=== PATIENT | female | born 1970 | race Caucasian/White ===

== ENCOUNTER 2017-03-05 07:59 | Emergency (ER) | payer BC ==
--- NOTE | 2017-03-05 09:22 | RAD ---
HISTORY: Chest pain COMPARISONS: August 28, 2012 VIEWS: 2: Frontal dual-energy and lateral views of the chest. FINDINGS: CARDIOMEDIASTINAL SILHOUETTE: The cardiomediastinal silhouette is normal. SUSY: The susy are normal. PLEURA: The costophrenic angles are sharp. No pleural abnormalities are noted. LUNG PARENCHYMA: The lungs are clear. ABDOMEN: The upper abdomen is clear. There is no subphrenic gas. BONES AND SOFT TISSUES: No bone or soft tissue abnormalities are noted. OTHER: None. IMPRESSION: NO ACTIVE CARDIOPULMONARY DISEASE.
[2017-03-05 09:37] LABS: Hematocrit 38 % (35-47); Hemoglobin 13.3 g/dl (12.0-16.0); Mean Corpuscular HGB Conc 35 g/dl (31-36); Mean Corpuscular Hemoglobin 29 pg (27-31); Mean Corpuscular Volume 83 fL (80-97); Mean Platelet Volume 7 um3 (7.4-10.4); Red Blood Count 4.58 10^6/ul (4.0-5.4); Red Cell Distribution Width 14 % (10.5-15); White Blood Count 5.3 10^3/ul (3.5-10.8)
[2017-03-05 09:50] LABS: Ammonia 35 mol/L (16-53)
[2017-03-05 09:52] LABS: Albumin 3.9 g/dL (3.2-5.2); BUN/Creatinine Ratio 15.7 (8-20); C Reactive Protein 3.87 mg/L (< 5.00); Calcium 8.9 mg/dL (8.6-10.3); EGFR Non-African American 74.7 (>60); Globulin 2.7 g/dL (2-4); Total Bilirubin 0.9 mg/dL (0.2-1.0); Total Protein 6.6 g/dL (6.4-8.9)
[2017-03-05 09:56] LABS: B Type Natriuretic Peptide 117 pg/mL
[2017-03-05] MEDS ORDERED: Ketorolac INJ* 30 MG/ML 1 ML VIAL IV PUSH ONE (11:21)
[2017-03-05 13:22] VITALS: BP 117/57
--- NOTE | 2017-03-05 18:17 | ED ---
Reji Elizondo Billy, scribed for Brando Oh MD on 03/05/17 at 0934 . Complex/Multi-Sys Presentation - HPI Summary HPI Summary: Patient is a 46 year-old female coming to [facility] for evaluation of several complaints. She woke up with pain in the epigastrium 3 days ago with accompanying nausea. She describes a pressure and ache in the epigastric region , severity 7-8/10. Yesterday, she began to have pain in the left shoulder radiating down the left arm. She describes her shoulder pain as a sharp, stabbing pain that is worse with deep breaths. Denies SOB. Denies any similar previous episodes. PSHx is significant for cholecystectomy. - History Of Current Complaint Chief Complaint: EDGeneral Time Seen by Provider: 03/05/17 08:37 Hx Obtained From: Patient Onset/Duration: Gradual Onset, Lasting Days, Still Present Timing: Constant Severity Currently: Moderate Severity Initially: Moderate Location: Pain At: - epigastric, shoulder Aggravating Factor(s): left shoulder pain worse with deep breaths Associated Signs And Symptoms: Negative: SOB - Allergies/Home Medications Allergies/Adverse Reactions: Allergies Allergy/AdvReac Type Severity Reaction Status Date / Time No Known Allergies Allergy Verified 03/05/17 09:18 PMH/Surg Hx/FS Hx/Imm Hx Endocrine/Hematology History: Denies: Hx Diabetes Cardiovascular History: Denies: Hx Hypertension, Hx Pacemaker/ICD Respiratory History: Reports: Hx Asthma - childhood asthma History: Reports: Hx Kidney Stones - LEFT Denies: Hx Renal Disease Sensory History: Reports: Hx Contacts or Glasses - CONTACTS WILL WEAR GLASSES Denies: Hx Hearing Aid Opthamlomology History: Reports: Hx Contacts or Glasses - CONTACTS WILL WEAR GLASSES Psychiatric History: Reports: Hx Anxiety - CONTROL WITH MEDS Denies: Hx Panic Disorder - Cancer History Hx Chemotherapy: No Hx Radiation Therapy: No - Surgical History Surgery Procedure, Year, and Place: 1999 & 2002 CSECTION, [id number] LAPAROSCOPIC CHOLECYSTECTOMY, [id number] [facility] KIDNEY STONE REMOVAL Hx Anesthesia Reactions: Yes - SEVERE NAUSEA AND VOMITING Infectious Disease History: No Infectious Disease History: Denies: Traveled Outside the US in Last 30 Days - Family History Family History: Patient states that both of her parents are alive and healthy without any significant health problems. - Social History Alcohol Use: Occasionally Substance Use Type: Reports: None Smoking Status (MU): Never Smoked Tobacco Review of Systems Negative: Shortness Of Breath Positive: Abdominal Pain, Nausea Musculoskeletal: Other - left shoulder pain All Other Systems Reviewed And Are Negative: Yes Physical Exam - Summary Physical Exam Summary: VITAL SIGNS: Reviewed. GENERAL: Patient is a well-developed and nourished female who is lying comfortable in the stretcher. Patient is not in any acute respiratory distress. HEAD AND FACE: No signs of trauma. No ecchymosis, hematomas or skull depressions. No sinus tenderness. EYES: PERRLA, EOMI x 2, No injected conjunctiva, no nystagmus. EARS: Hearing grossly intact. Ear canals and tympanic membranes are within normal limits. MOUTH: Oropharynx within normal limits. NECK: Supple, trachea is midline, no adenopathy, no JVD, no carotid bruit, no c- spine tenderness, neck with full ROM. CHEST: Symmetric, no tenderness at palpation LUNGS: Clear to auscultation bilaterally. No wheezing or crackles. CVS: Regular rate and rhythm, S1 and S2 present, no murmurs or gallops appreciated. ABDOMEN: Soft, tender to the epigastrium. No signs of distention. No rebound no guarding, and no masses palpated. Bowel sounds are normal. EXTREMITIES: FROM in all major joints, no edema, no cyanosis or clubbing. NEURO: Alert and oriented x 3. No acute neurological deficits. Speech is normal and follows commands. SKIN: Dry and warm Triage Information Reviewed: Yes Vital Signs On Initial Exam: Initial Vitals Temp Pulse Resp BP Pulse Ox 98.3 F 62 18 130/76 100 03/05/17 08:01 03/05/17 08:01 03/05/17 08:01 03/05/17 08:01 03/05/17 08:01 Vital Signs Reviewed: Yes - [place] Coma Scale Coma Scale Total: 15 Diagnostics - Vital Signs Vital Signs Temp Pulse Resp BP Pulse Ox 03/05/17 08:08 98.3 F 57 18 126/71 100 03/05/17 08:01 98.3 F 62 18 130/76 100 - Laboratory Lab Results: Lab Results 03/05/17 03/05/17 03/05/17 Range/Units 09:15 09:15 09:15 WBC 5.3 (3.5-10.8) 10^3/ul RBC 4.58 (4.0-5.4) 10^6/ul Hgb 13.3 (12.0-16.0) g/dl Hct 38 (35-47) % MCV 83 (80-97) fL MCH 29 (27-31) pg MCHC 35 (31-36) g/dl RDW 14 (10.5-15) % Plt Count 212 (150-450) 10^3/ul MPV 7 L (7.4-10.4) um3 Neut % (Auto) 72.6 (38-83) % Lymph % (Auto) 20.0 L (25-47) % [place] % (Auto) 5.7 (1-9) % Eos % (Auto) 1.3 (0-6) % Baso % (Auto) 0.4 (0-2) % Absolute Neuts (auto) 3.8 (1.5-7.7) 10^3/ul Absolute Lymphs (auto) 1.1 (1.0-4.8) 10^3/ul Absolute Monos (auto) 0.3 (0-0.8) 10^3/ul Absolute Eos (auto) 0.1 (0-0.6) 10^3/ul Absolute Basos (auto) 0 (0-0.2) 10^3/ul Absolute Nucleated RBC 0.01 10^3/ul Nucleated RBC % 0.1 Sodium 135 (133-145) mmol/L Potassium 4.0 (3.5-5.0) mmol/L Chloride 104 (101-111) mmol/L Carbon Dioxide 25 (22-32) mmol/L Anion Gap 6 (2-11) mmol/L BUN 13 (6-24) mg/dL Creatinine 0.83 (0.51-0.95) mg/dL Est GFR ( Amer) 96.0 (>60) Est GFR (Non-Af Amer) 74.7 (>60) BUN/Creatinine Ratio 15.7 (8-20) Glucose 101 H (70-100) mg/dL Lactic Acid (0.5-2.0) mmol/L Calcium 8.9 (8.6-10.3) mg/dL Total Bilirubin 0.90 (0.2-1.0) mg/dL AST 17 (13-39) U/L ALT 15 (7-52) U/L Alkaline Phosphatase 50 (34-104) U/L Ammonia 35 (16-53) mol/L Total Creatine Kinase 76 (10-223) U/L Troponin I 0.00 (<0.04) ng/mL C-Reactive Protein 3.87 (< 5.00) mg/L B-Natriuretic Peptide 117 H ( - 100) pg/mL Total Protein 6.6 (6.4-8.9) g/dL Albumin 3.9 (3.2-5.2) g/dL Globulin 2.7 (2-4) g/dL Albumin/Globulin Ratio 1.4 (1-3) Amylase 52 (29-103) U/L Lipase 33 (11.0-82.0) U/L 03/05/17 03/05/17 Range/Units 09:15 11:40 WBC (3.5-10.8) 10^3/ul RBC (4.0-5.4) 10^6/ul Hgb (12.0-16.0) g/dl Hct (35-47) % MCV (80-97) fL MCH (27-31) pg MCHC (31-36) g/dl RDW (10.5-15) % Plt Count (150-450) 10^3/ul MPV (7.4-10.4) um3 Neut % (Auto) (38-83) % Lymph % (Auto) (25-47) % [place] % (Auto) (1-9) % Eos % (Auto) (0-6) % Baso % (Auto) (0-2) % Absolute Neuts (auto) (1.5-7.7) 10^3/ul Absolute Lymphs (auto) (1.0-4.8) 10^3/ul Absolute Monos (auto) (0-0.8) 10^3/ul Absolute Eos (auto) (0-0.6) 10^3/ul Absolute Basos (auto) (0-0.2) 10^3/ul Absolute Nucleated RBC 10^3/ul Nucleated RBC % Sodium (133-145) mmol/L Potassium (3.5-5.0) mmol/L Chloride (101-111) mmol/L Carbon Dioxide (22-32) mmol/L Anion Gap (2-11) mmol/L BUN (6-24) mg/dL Creatinine (0.51-0.95) mg/dL Est GFR ( Amer) (>60) Est GFR (Non-Af Amer) (>60) BUN/Creatinine Ratio (8-20) Glucose (70-100) mg/dL Lactic Acid 0.6 (0.5-2.0) mmol/L Calcium (8.6-10.3) mg/dL Total Bilirubin (0.2-1.0) mg/dL AST (13-39) U/L ALT (7-52) U/L Alkaline Phosphatase (34-104) U/L Ammonia (16-53) mol/L Total Creatine Kinase (10-223) U/L Troponin I 0.00 (<0.04) ng/mL C-Reactive Protein (< 5.00) mg/L B-Natriuretic Peptide ( - 100) pg/mL Total Protein (6.4-8.9) g/dL Albumin (3.2-5.2) g/dL Globulin (2-4) g/dL Albumin/Globulin Ratio (1-3) Amylase (29-103) U/L Lipase (11.0-82.0) U/L Result Diagrams: 03/05/17 09:15 03/05/17 09:15 Lab Statement: Any lab studies that have been ordered have been reviewed, and results considered in the medical decision making process. - Radiology CXR Xray Interpretation: No Acute Changes Radiology Interpretation Completed By: Radiologist - EKG 0816 EKG Interpretation: sinus bradycardia 51 bpm, no STEMI Re-Evaluation - Re-Evaluation First Eval Re-Evaluation Time: 12:39 Complex Multi-Symp Course/Dx Assessment/Plan: Patient is a 46 year-old female coming to [facility] for evaluation of several complaints. She woke up with pain in the epigastrium 3 days ago with accompanying nausea. She describes a pressure and ache in the epigastric region , severity 7-8/10. Yesterday, she began to have pain in the left shoulder radiating down the left arm. She describes her shoulder pain as a sharp, stabbing pain that is worse with deep breaths. Denies SOB. Denies any similar previous episodes. PSHx is significant for cholecystectomy. Bloodwork WNL. Troponin #1 is 0.00. Four hours later, troponin #2 is also 0.00. CXR shows no acute disease. EKG shows NSR with no STEMI. Therefore I have very low suspicion for ACS. The patients vital signs are stable. She is not tachycardia or hypoxic , therefore I have very low suspicion for pulmonary embolism. The patient was given Toradol and her symptoms improved. Therefore the patient will be discharged home to follow up with PCP. She was instructed to return to the ED if symptoms returned. She understands and agrees. At this point I discussed all the findings and test results with the patient. Patient was instructed to return to the emergency room immediately if any of the symptoms return or worsens. Patient understands and agrees. Patient is able to ambulate freely w/o aid or limp in the ER. Plan of care was discussed with the patient and patient understands and agrees. All questions were answered at patient satisfaction. There were no further complaints or concerns. Neurological exam before discharge: Patient is alert and oriented x 3. No acute neurological deficits. Patient is hemodynamically stable. Patient is to follow up with primary care physician in the next 2 3 days. He understands and agrees. - Diagnoses Provider Diagnoses: Chest pain Discharge - Discharge Plan Condition: Stable Disposition: HOME Patient Education Materials: Chest Pain (ED) Referrals: Manjula Villa MD [Primary Care Provider] - The documentation as recorded by the Reji velasquez Billy accurately reflects the service I personally performed and the decisions made by , Brando Oh MD.
== END 2017-03-05 13:22 | disposition home or self-care (01) ==
LOC: ED 07:59
DX: R07.9 Chest pain, unspecified (principal); R11.0 Nausea; M79.602 Pain in left arm
CPT/HCPCS: 36415; 71020; 80053; 82140; 82150; 82550; 83605; 83690; 83880; 84484; 85025; 86140; 93005; 96374; 99282; J1885

== ENCOUNTER 2019-02-24 08:20 | Observation (INO) | payer BC ==
[2019-02-24] MEDS ORDERED: Adenosine* 3 MG/ML VIAL IV PUSH ONE (08:31)
[2019-02-24] MEDS ORDERED: Adenosine* 3 MG/ML VIAL ONE (08:32)
[2019-02-24 08:44] LABS: ABS Eosinophils 0.1 10^3/ul (0-0.6); ABS Lymphocytes 1.7 10^3/ul (1.0-4.8); ABS Monocytes 0.3 10^3/ul (0-0.8); ABS Neutrophils 2.6 10^3/ul (1.5-7.7); Hematocrit 43 % (35-47); Lymphocyte % 35.1 %; Mean Corpuscular HGB Conc 35 g/dL (31-36); Mean Corpuscular Hemoglobin 29 pg (27-31); Mean Corpuscular Volume 82 fL (80-97); Mean Platelet Volume 6.8 fL (7.4-10.4); Nucleated Red Blood Cells % 0.1; Platelet Count 251 10^3/uL (150-450); Red Blood Count 5.21 10^6 /uL (3.70-4.87); Red Cell Distribution Width 15 % (10.5-15); White Blood Count 4.8 10^3/uL (3.5-10.8)
--- NOTE | 2019-02-24 08:49 | ED ---
HPI Chest Pain - HPI Summary HPI Summary: This patient is a 48 year old F presenting to [facility] with a chief complaint of L anterior chest pain since this morning at 0745 after dropping her daughter off at school. The patient stated that her heart was racing. The patient rates the pain 2/10 in severity. Patient denies dizziness, SOB, N/V, syncope, pain on palpation to her chest. She started going the gym last week and had similar chest pain while exercising. The patient reports a previous episode of chest pain while at work, but the pain resolved after breathing exercises. The patient denies a Hx and FHx of LBBB. - History of Current Complaint Time Seen by Provider: 02/24/19 08:26 Hx Obtained From: Patient Onset/Duration: Started Hours Ago - 0745 Timing: Constant Initial Severity: Mild Current Severity: Mild Pain Intensity: 2 Pain Scale Used: 0-10 Numeric Chest Pain Location: Left Anterior Chest Pain Radiates: No Character: Pressure/Squeezing Aggravating Factor(s): Nothing Alleviating Factor(s): Nothing Associated Signs and Symptoms: Positive: Palpitations. Negative: Chest Pain, Dizziness, Shortness of Breath, Syncope, Nausea, Vomiting - Allergy/Home Medications Allergies/Adverse Reactions: Allergies Allergy/AdvReac Type Severity Reaction Status Date / Time No Known Allergies Allergy Verified 01/23/18 13:12 PMH/Surg Hx/FS Hx/Imm Hx Previously Healthy: No Endocrine/Hematology History: Denies: Hx Diabetes Cardiovascular History: Denies: Hx Hypertension, Hx Pacemaker/ICD Respiratory History: Reports: Hx Asthma - childhood asthma History: Reports: Hx Kidney Stones - LEFT Denies: Hx Renal Disease Sensory History: Reports: Hx Contacts or Glasses - CONTACTS WILL WEAR GLASSES Denies: Hx Hearing Aid Opthamlomology History: Reports: Hx Contacts or Glasses - CONTACTS WILL WEAR GLASSES Psychiatric History: Reports: Hx Anxiety - CONTROL WITH MEDS Denies: Hx Panic Disorder - Cancer History Hx Chemotherapy: No Hx Radiation Therapy: No - Surgical History Surgery Procedure, Year, and Place: 1999 & 2002 CSECTION, [id number] LAPAROSCOPIC CHOLECYSTECTOMY, [id number] HYSTERECTOMY, [facility], KIDNEY STONE REMOVAL Hx Anesthesia Reactions: Yes - SEVERE NAUSEA AND VOMITING Infectious Disease History: No Infectious Disease History: Denies: Traveled Outside the [place] in Last 30 Days - Family History Known Family History: Positive: Hypertension Negative: Diabetes Family History: Patient states that both of her parents are alive and healthy without any significant health problems. - Social History Alcohol Use: Occasionally Alcohol Amount: 1 Hx Substance Use: No Substance Use Type: Reports: None Hx Tobacco Use: No Smoking Status (MU): Never Smoked Tobacco Have You Smoked in the Last Year: No Review of Systems Positive: Other - Negative: dizziness Positive: Palpitations, Chest Pain Negative: Shortness Of Breath Negative: Vomiting, Nausea Negative: Syncope All Other Systems Reviewed And Are Negative: Yes Physical Exam - Summary Physical Exam Summary: VITAL SIGNS: Reviewed. GENERAL: Patient is a well-developed and overweight FEMALE who is lying comfortable in the stretcher. Patient is in acute pain distress secondary to tachycardia. HEAD AND FACE: No signs of trauma. No ecchymosis, hematomas or skull depressions. No sinus tenderness. EYES: PERRLA, EOMI x 2, No injected conjunctiva, no nystagmus. EARS: Hearing grossly intact. Ear canals and tympanic membranes are within normal limits. MOUTH: Oropharynx within normal limits. NECK: Supple, trachea is midline, no adenopathy, no JVD, no carotid bruit, no c- spine tenderness, neck with full ROM. CHEST: Tachycardia, tenderness on palpation. LUNGS: Clear to auscultation bilaterally. No wheezing or crackles. CVS: Regular rate and rhythm, S1 and S2 present, no murmurs or gallops appreciated. ABDOMEN: Soft, non-tender. No signs of distention. No rebound no guarding, and no masses palpated. Bowel sounds are normal. EXTREMITIES: FROM in all major joints, no edema, no cyanosis or clubbing. NEURO: Alert and oriented x 3. No acute neurological deficits. Speech is normal and follows commands. SKIN: Dry and warm Triage Information Reviewed: Yes Vital Signs On Initial Exam: Initial Vitals Temp Pulse Resp BP Pulse Ox 95.1 F 171 18 130/88 97 02/24/19 08:20 02/24/19 08:20 02/24/19 08:20 02/24/19 08:20 02/24/19 08:20 Vital Signs Reviewed: Yes Diagnostics - Vital Signs Vital Signs Temp Pulse Resp BP Pulse Ox 02/24/19 08:20 95.1 F 171 18 130/88 97 - Laboratory Result Diagrams: 02/24/19 08:34 05/22/19 05:41 Lab Statement: Any lab studies that have been ordered have been reviewed, and results considered in the medical decision making process. - Radiology CXR Radiology Interpretation Completed By: Radiologist Summary of Radiographic Findings: NO ACTIVE CARDIOPULMONARY DISEASE IS NOTED. ED physician has reviewed this report. - EKG 0822 Cardiac Rate: Tachycardia - 168 BPM EKG Rhythm: SVT Summary of EKG Findings: Tachycardic rhythm with rate of 168 BPM with SVT and a LBBB. 0834 Cardiac Rate: NL - 86 BPM EKG Rhythm: Sinus Rhythm Summary of EKG Findings: Normal sinus rhythm at 86 BPM, LBBB Re-Evaluation - Re-Evaluation First Eval Re-Evaluation Time: 08:32 Change: Unchanged Comment: Patient was given adenosine 6 mg. Still with LBBB. Second Eval Re-Evaluation Time: 09:04 Change: Improved Comment: Patient was seen by Dr. Morris. condition is improving. Chest Pain Course/Dx - Course Assessment/Plan: This patient is a 48 year old F presenting to [facility] with a chief complaint of L anterior chest pain since this morning at 0745 after dropping her daughter off at school. The patient stated that her heart was racing. The patient rates the pain 2/10 in severity. Patient denies dizziness, SOB, nausea, syncope, pain on palpation to her chest. She started going the gym last week and had similar chest pain while exercising. The patient reports a previous Hx of chest pain while at work, but the pain resolved after breathing exercises. The patient denies a Hx and FHx of LBBB. EKG shows supraventricular tachycardia with a left bundle-branch block. IV access was obtained, the patient was placed on patient monitor and she was given adenosine 6 mg. After these medications the heart rate is at 97 bpm. The patient is still with a left bundle-branch block. This is new compared to her old EKGs. I discussed case with Dr. Morris who came and saw the patient and he recommended to give Lopressor 5 mg. He also recommends for the patient to be admitted to the hospital services for further workup and management. I discuss my physical exam , findings and test results with Dr. Tse from the hospitalist services and she agrees to admit patient to his services. Patient is hemodynamically stable alert and oriented x 3. - Chest Pain Differential Diagnosis/HQI/PQRI: Acute MT, ACS, Angina, CHF, Chest Wall, GI Disease, Lower Respiratory Infection - Diagnoses Provider Diagnoses: SVT (supraventricular tachycardia), LBBB (left bundle branch block) - Provider Notifications Discussed Care Of Patient With: Hernan Morris Time Discussed With Above Provider: 08:42 Instructed by Provider To: Admit As Inpatient - 841 - Dr. Morris, wet pour supervisor, recommended admitting the patient. Dr. Tse, Hospitalist, accepts the patient for admission, 926. - Critical Care Time Critical Care Time: 30-74 min Discharge - Sign-Out/Discharge Documenting (check all that apply): Patient Departure - admit - Discharge Plan Condition: Stable Disposition: ADMITTED TO [facility] - Billing Disposition and Condition Condition: GOOD Disposition: Admitted to [facility] - Attestation Statements Document Initiated by Irma: Yes Documenting Scribe: Az Garcia Provider For Whom Irma is Documenting (Include Credential): Brando Oh MD Scribe Attestation: IAz and Aime Garcia, scribed for Brando Oh MD on 02/26/19 at 1135. Scribe Documentation Reviewed: Yes Provider Attestation: The documentation as recorded by the ariaibcriss, Az Garcia accurately reflects the service I personally performed and the decisions made by Brando pereira MD Status of Scribe Document: Viewed
[2019-02-24] MEDS ORDERED: NS 0.9% 1000 ML** 1,000 ML IV ONE (08:56)
[2019-02-24 09:03] LABS: Activated Partial Thrombo Time 29.8 seconds (26.0-36.3)
[2019-02-24 09:04] LABS: ALT 25 U/L (7-52); AST 29 U/L (13-39); Albumin 4.8 g/dL (3.2-5.2); Albumin/Globulin Ratio 1.5 (1-3); Alkaline Phosphatase 56 U/L (34-104); Anion Gap 11 mmol/L (2-11); BUN/Creatinine Ratio 12.1 (8-20); Blood Urea Nitrogen 11 mg/dL (6-24); CO2 Carbon Dioxide 22 mmol/L (22-32); Calcium 9.9 mg/dL (8.6-10.3); Chloride 105 mmol/L (101-111); Creatine Kinase 445 U/L (10-223); EGFR African American 80.5 (>60); EGFR Non-African American 66.6 (>60); Globulin 3.1 g/dL (2-4); Glucose 95 mg/dL (70-100); Magnesium 1.9 mg/dL (1.9-2.7); Potassium 3.7 mmol/L (3.5-5.0); Sodium 138 mmol/L (135-145); Total Protein 7.9 g/dL (6.4-8.9)
[2019-02-24 09:05] LABS: Troponin I 0.01 ng/mL (<0.04)
[2019-02-24 09:06] LABS: CKMB ng/mL 3.3 ng/mL (0.6-6.3)
[2019-02-24 09:07] LABS: HCG Pregnancy < 0.60 mIU/mL
[2019-02-24] MEDS ORDERED: Metoprolol Tartrate IV* 1 MG/ML 5 ML VIAL IV ONE (09:07)
[2019-02-24 09:31] LABS: TSH (Thyroid Stimulating Horm) 2.67 mcIU/mL (0.34-5.60)
[2019-02-24 09:53] LABS: Urine Appearance Clear; Urine Bilirubin Negative (Negative); Urine Blood Negative (Negative); Urine Color Straw; Urine Glucose Negative (Negative); Urine Ketones 1+ (Negative); Urine Nitrite Negative (Negative); Urine Protein Negative (Negative); Urine Specific Gravity 1.005 (1.010-1.030); Urine Urobilinogen Negative (Negative)
[2019-02-24] MEDS ORDERED: Potassium Chlor TAB* 20 MEQ TAB.ER PO ONE (11:54)
[2019-02-24] MEDS ORDERED: Magnesium Sulfate 1 GM IV* 1 GM/100 ML BAG IV ONE (11:54)
--- NOTE | 2019-02-24 13:56 | HP ---
CC: Dr. Manjula Villa* HISTORY AND PHYSICAL: DATE OF ADMISSION: 02/24/19 PRIMARY CARE PROVIDER: Dr. Manjula Villa. HEALTHCARE PROXY: Isaiah Jones, the patient's . CODE STATUS: Full. CHIEF COMPLAINT: Fast heart rate and palpitations. HISTORY OF PRESENT ILLNESS: Ms. Jones is a 48-year-old woman with a history of anxiety and nephrolithiasis status post lithotripsy, who is presenting to the ER with acute onset of palpitations associated with a heavy feeling across her chest. She reports that for the past 6 months, she has had approximately 5 episodes of very fast heart rate. She states that she notices this when she feels palpitations in her chest and she checks her pulse and notices that her heart rate is going very quickly. She states that she thought that this was from anxiety attacks and she would take several deep breaths and eventually the palpitations and fast heart rate would resolve spontaneously. She reports that this morning, she was in the car with her daughter, who just got her learner's permit and was driving herself to school, when the patient again felt recurrence of palpitations with a heavy feeling in her chest. She denies that this ride was particularly stressful or anxiety provoking. After the drive, she had gone home and laid down in bed and practiced deep breathing again, but the palpitations did not resolve, so she decided to present to the emergency room. She denies chest pain, shortness of breath, diaphoresis, nausea, vomiting, abdominal pain or dysuria. Complete 10-point review of systems was performed and pertinent positives and negatives are listed in this HPI. In the emergency room, the patient had an EKG that was significant for rate of 168 with rhythm concerning for SVT, although the complex was wide. The patient was given adenosine 6 mg IV push once and also metoprolol 5 mg IV with resolution of her arrhythmia and symptoms. However, on repeat EKG, the patient was noted to have a new left bundle-branch block, so Dr. Morris from Cardiology was consulted, who recommended admission for further workup of structural or coronary artery disease. PAST MEDICAL HISTORY: 1. Anxiety. 2. Nephrolithiasis, status post lithotripsy in 2014. 3. Fibroid, status post hysterectomy. 4. Cholecystectomy. HOME MEDICATIONS: Escitalopram 10 mg nightly. ALLERGIES: No known drug allergies. FAMILY HISTORY: Both parents with hypertension. Paternal grandmother with a heart tumor. SOCIAL HISTORY: The patient lives with her and youngest daughter, her oldest daughter is training to be a nurse at [employer]. The patient denies history of smoking, alcohol, or other drugs. 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 PHYSICAL EXAMINATION GENERAL: She is a well-appearing pleasant woman in good spirits, no acute distress. VITAL SIGNS: Temperature 95, heart rate 50s, blood pressure 118/63, respiratory rate 16, oxygen saturation 100% on room air. HEENT: OP clear. Moist mucous membranes. NECK: No JVD. LUNGS: Clear to auscultation bilaterally. HEART: Regular rate and rhythm. No murmurs, gallops, or rubs. ABDOMEN: Soft, nontender, nondistended. Normoactive bowel sounds. BACK: No CVA tenderness. EXTREMITIES: Warm and well perfused. No edema. DP pulses 2+ bilaterally. DIAGNOSTIC STUDIES/LAB DATA: Labs reviewed and significant for normal CBC, BMP, and coags. Creatinine kinase 445. CK-MB normal. Troponin negative x2. BNP 180. TSH 2.6. UA clear. Chest x-ray with no active cardiopulmonary disease. EKGs as above. ASSESSMENT AND PLAN: Ms. oJnes is a 48-year-old woman with a history of anxiety and kidney stones, who is presenting with months of intermittent palpitations, who is found to have possible supraventricular tachycardia in the emergency room, which broke with adenosine and metoprolol. She is now being admitted for workup for new left bundle branch block discovered after the patient returned to normal sinus rhythm. 1. Left bundle-branch block. Appreciate Cardiology consult, Dr. Morris. Followup recommendations. Ordered for chemical stress test and TTE. We will continue to monitor electrolytes and replete as needed. Keep on telemetry overnight. Consider beta-magdy. 2. Anxiety. Continue home escitalopram 10 mg daily. 3. DVT prophylaxis: Initiate Lovenox 40 mg nightly. 4. Full code. TIME SPENT: Approximately 60 minutes was spent on admission of this patient, more than half of which was spent at bedside for interview and exam. [id number]/[facility] #: [id number] RICKY
--- NOTE | 2019-02-24 15:46 | ECHO ---
*[facility]* [place] [address] Fax #: [phone] Transthoracic Echocardiogram Patient: Robert, Height: 64 in / Mendy Lawrence 162.6 cm : 1970 Weight: 209.6 lb / Study Date: 02/24/2019 95.3 kg Age: 48 BP: 116 / 59 Gender: F BMI/BSA: 36 kg/m^2 HR: 55 bpm / 2 m^2 *Carton Stapler: * Gwendolyn Chen [facility] *Referring Physician: * Razia Tse *Reading Physician: * Hernan Morris MD Indications: Abnormal EKG. SVT History: Asthma. Conclusions Summary: 1. Left ventricle: The cavity size is at the upper limits of normal. Wall thickness is normal. Systolic function is normal. The estimated ejection fraction is 55-60%. Wall motion is normal; there are no regional wall motion abnormalities. 2. Right ventricle: Systolic function is normal. 3. Mitral valve: There is trivial regurgitation. 4. Aortic valve: There is no significant regurgitation. 5. Tricuspid valve: There is trivial regurgitation. 6. Pericardium, extracardiac: There is no significant pericardial effusion. Study data: Transthoracic echocardiogram. Procedure: Transthoracic echocardiography was performed. Image quality was good. Complete 2D, spectral Doppler, and color flow Doppler. Location: Bedside. Patient status: Inpatient. Patient room number: 438. Rhythm: Bradycardia. Findings Left ventricle: The cavity size is at the upper limits of normal. Wall thickness is normal. Apical trabeculations are present. Systolic function is normal. The estimated ejection fraction is 55-60%. Wall motion is normal; there are no regional wall motion abnormalities. There is no consistent Doppler evidence of clinically significant diastolic dysfunction. Right ventricle: The cavity size is normal. Systolic function is normal. Systolic pressure is within the normal range. Left atrium: The atrium is normal in size. Right atrium: The atrium is mildly to moderately dilated. Mitral valve: The leaflets are mildly thickened. There is no evidence of stenosis. There is trivial regurgitation. Aortic valve: The valve is trileaflet. The leaflets are mildly thickened. There is no evidence of stenosis. There is no significant regurgitation. Tricuspid valve: The leaflets are normal thickness. There is no evidence of stenosis. There is trivial regurgitation. Pulmonic valve: The leaflets are normal thickness. There is no evidence of stenosis. There is no significant regurgitation. Aorta: The aortic root is not dilated. Pericardium: There is no significant pericardial effusion. Pulmonary arteries: Not well visualized. Systemic veins: Inferior vena cava: The vessel is normal in size. The respirophasic diameter changes are in the normal range (>= 50%). Measurements Left ventricle Value Ref Aortic valve continued Value Ref SHEKHAR, LAX 5.2 cm 3.8 - 5.2 Mean grad, S 4.0 mm Hg ----- ESD, LAX (H) 4.0 cm 2.2 - 3.5 Peak grad, S 9.0 mm Hg ----- FS, LAX (L) 23 % 27 - 45 PW, ED, LAX 0.9 cm 0.6 - 0.9 Mitral valve Value Ref PW/ID, ED 0.17 Peak E 0.79 m/sec ----- EF (L) 47 % 54 - 74 Peak A 0.52 m/sec ----- E', lat uday, TDI (L) 9.8 cm/sec >=10.0 Decel time 145 ms - ---- E/e', lat uday, 8 Peak grad, D 2.5 mm Hg ---- - TDI Peak E/A ratio 1.5 ----- E', med uday, TDI (L) 6.8 cm/sec >=7.0 E/e', med uday, 12 Pulmonic valve Value Ref TDI Peak v, S 0.87 m/sec ----- E', avg, TDI 8.3 cm/sec Peak grad, S 3.0 mm Hg ---- - E/e', avg, TDI 9 <=14 Tricuspid valve Value Ref LVOT Value Ref TR peak v 2.23 m/sec <=2.8 Peak pam, S 1.26 m/sec Peak RV-RA grad, S 20 mm Hg ----- Peak grad, S 6 mm Hg Mean grad, S 3 mm Hg Aortic root Value Ref Root diam 2.6 cm <4.1 Ventricular septum Value Ref IVS, ED (H) 1.0 cm 0.6 - 0.9 Ascending aorta Value Ref AAo AP diam, S 2.7 cm ----- Right ventricle Value Ref SHEKHAR, LAX 3.5 cm Aortic arch Value Ref SHEKHAR minor ax, A4C 3.4 cm 1.9 - 3.5 Arch diam 3.2 cm ----- mid Pressure, S 23 mm Hg Decending aorta Value Ref Shellie peak pam 1.22 m/sec ----- Left atrium Value Ref AP dim, ES (H) 4.00 cm 2.70 - Pulmonary artery Value Ref 3.80 Pressure, S 20.0 mm Hg ----- ML dim, A4C 4.6 cm SI dim, A4C 5.3 cm Inferior vena cava Value Ref Vol/bsa, ES, A/L 30 ml/m^2 16 - 34 Diam 1.8 cm ----- Right atrium Value Ref Pulmonary veins Value Ref SI dim, ES (H) 6.4 cm 3.4 - 5.3 Peak v, S 0.75 m/sec ----- ML dim, ES, A4C (H) 4.5 cm 2.6 - 4.4 Peak v, D 0.61 m/sec ----- Estimated RAP 3 mm Hg Peak S/D ratio 1.2 ----- A rev duration 98 ms ----- Aortic valve Value Ref Uday diam, ED 2.2 cm Peak v, S 1.51 m/sec VTI, S 33.2 cm Legend: (L) and (H) shlomo values outside specified reference range. Prepared and electronically signed by Hernan Morris MD 02/24/2019 15:46
--- NOTE | 2019-02-24 17:42 | CONS ---
CARDIOLOGY CONSULTATION: DATE OF CONSULT: 02/24/19 INDICATION FOR CONSULTATION: Tachycardia, palpitations. HISTORY OF PRESENT ILLNESS: The patient is a 48-year-old female with very little past medical history who came to the emergency room with palpitations. She was found to have wide complex tachycardia at 160 beats per minute that look like a left bundle-branch block morphology. The patient was given 6 mg of adenosine and she converted to normal sinus rhythm with a left bundle-branch block. As soon as the adenosine was given, the patient's palpitation symptoms resolved and her shortness of breath resolved. The patient states that she has had a couple of these episodes over the past 2 weeks or so, she states her heart feels like it is racing for 2 to 3 minutes and then resolve on its own. The patient denies any lightheadedness or dizziness. She does get some shortness of breath when her heart is racing. She denies any syncopal episodes. She denies any history of cardiac problems. PAST MEDICAL HISTORY: Significant for: 1. Anxiety. 2. Kidney stones. 3. History of cholecystectomy in the past. 4. History of hysterectomy in the past. OUTPATIENT MEDICATIONS: Lexapro 10 mg a day. ALLERGIES: No known drug allergies. SOCIAL HISTORY: She lives with her and youngest daughter. She denies tobacco or alcohol use. 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 She does not get any regular exercise. FAMILY HISTORY: Her parents have a history of hypertension. No history of early coronary artery disease in the family. REVIEW OF SYSTEMS: Negative for fevers and chills. Negative for changes in bowel or bladder habits. Negative for changes in weight. Other 12-point review is unremarkable. PHYSICAL EXAM: Height 5 feet 4 inches, weight 216 pounds, temperature 98.4, heart rate 54, blood pressure 141/77, respiratory rate is 20, oxygen saturation 98%. Sclerae anicteric. Oropharynx is pink without erythema. Carotids are 2+ without bruits. JVD is normal. Thyroid is normal. Cardiac Exam: S1, S2 without any murmurs, rubs, or gallops. Lungs are clear to auscultation bilaterally. There is no dullness to percussion. Abdomen is soft, nontender, nondistended with normoactive bowel sounds. Extremities showed no edema. She has 2+ pulses throughout. The patient is awake, alert, and oriented. She moves all 4 extremities equally. LABORATORY DATA: Laboratory studies are normal. CBC is normal. Chemistries are normal. Troponins are negative x3. BNP is minimally elevated at 180. TSH is normal. IMPRESSION: This is a 48-year-old female who was admitted to the hospital with tachycardia. She was found to be in a wide complex tachycardia, was likely supraventricular tachycardia with aberrancy. She converted to normal sinus rhythm with 6 mg of adenosine. Her post conversion EKG is normal sinus rhythm with a left bundle-branch block that is new compared to previous EKGs. RECOMMENDATIONS: For now, my recommendation is the patient will be admitted to the hospital for observation. The patient will get an echocardiogram. The patient will get a Lexiscan nuclear stress test to evaluate for ischemia. The patient will probably benefit from a low dose beta-magdy for suppression of her SVT. Further recommendations pending the result of her cardiac testing. [id number]/[facility] #: [id number] MTDD
[2019-02-24] MEDS ORDERED: Escitalopram * 10 MG TAB PO SCH (21:00)
[2019-02-24] MEDS ORDERED: Enoxaparin(*) 40 MG/0.4 ML SYR SUBCUT SCH (22:00)
[2019-02-25 06:14] LABS: BUN/Creatinine Ratio 13.9 (8-20); Calcium 8.9 mg/dL (8.6-10.3); EGFR African American 94.8 (>60); EGFR Non-African American 78.3 (>60); Potassium 4.1 mmol/L (3.5-5.0)
[2019-02-25] MEDS ORDERED: Regadenoson* 0.4 MG/5 ML SYRINGE ONE (07:48)
[2019-02-25] MEDS ORDERED: Aminophylline IV* 25 MG/ML 10 ML VIAL ONE (07:48)
--- NOTE | 2019-02-25 10:53 | PN ---
Subjective Date of Service: 02/25/19 Objective Active Medications: Enoxaparin Sodium (Lovenox(*)) 40 mg SUBCUT Q24H [facility] Last Admin: 02/24/19 20:59 Dose: 40 mg Escitalopram Oxalate (Lexapro *) 10 mg PO BEDTIME [facility] Last Admin: 02/24/19 21:00 Dose: 10 mg Vital Signs - 8 hr 02/25/19 02/25/19 03:03 07:30 Temperature 98.1 F 97.9 F Pulse Rate 49 49 Respiratory 16 20 Rate Blood Pressure 121/62 121/63 (mmHg) O2 Sat by Pulse 100 99 Oximetry Oxygen Devices in Use Now: None Result Diagrams: 02/24/19 08:34 02/25/19 05:41 Assess/Plan/Problems-Billing Assessment:
--- NOTE | 2019-02-25 11:35 | PN ---
Subjective Date of Service: 02/25/19 - CC: racing heart Interval History: No new c/o, no palpitations. Medications Active Medications: Enoxaparin Sodium (Lovenox(*)) 40 mg SUBCUT Q24H [facility] Last Admin: 02/24/19 20:59 Dose: 40 mg Escitalopram Oxalate (Lexapro *) 10 mg PO BEDTIME [facility] Last Admin: 02/24/19 21:00 Dose: 10 mg Objective Vital Signs: Temp Pulse Resp BP Pulse Ox 97.9 F 49 20 121/63 99 02/25/19 07:30 02/25/19 07:30 02/25/19 07:30 02/25/19 07:30 02/25/19 07:30 Oxygen Devices in Use Now: None Appearance: Middleaged woman, in bed, 45 degrees, no distress. Eyes: No Scleral Icterus, PERRLA Ears/Nose/Mouth/Throat: Mucous Membranes Moist Neck: Trachea Midline, No Thyroid Enlargement, Masses Respiratory: Clear to Auscultation Cardiovascular: NL Sounds; No Murmurs; No JVD, RRR Abdominal: - - normal bowel sounds. Extremities: No Edema Skin: No Rash or Ulcers Neurological: Alert and Oriented x 3, NL Muscle Strength and Tone Lines/Tubes/Other Access: Clean, Dry and Intact Peripheral IV Laboratory Results: 02/24/19 08:34 02/25/19 05:41 INR (Anticoag Therapy) 1.00 (0.82-1.09) 02/24/19 08:34 APTT 29.8 seconds (26.0-36.3) 02/24/19 08:34 Total Bilirubin 0.80 mg/dL (0.2-1.0) 02/24/19 08:34 AST 29 U/L (13-39) 02/24/19 08:34 ALT 25 U/L (7-52) 02/24/19 08:34 Alkaline Phosphatase 56 U/L (34-104) 02/24/19 08:34 CK-MB (CK-2) 3.3 ng/mL (0.6-6.3) 02/24/19 08:34 B-Natriuretic Peptide 180 pg/mL (<=100) H 02/24/19 08:34 Total Protein 7.9 g/dL (6.4-8.9) 02/24/19 08:34 Albumin 4.8 g/dL (3.2-5.2) 02/24/19 08:34 Globulin 3.1 g/dL (2-4) 02/24/19 08:34 Albumin/Globulin Ratio 1.5 (1-3) 02/24/19 08:34 TSH 2.67 mcIU/mL (0.34-5.60) 02/24/19 08:34 02/24/19 02/24/19 02/24/19 08:34 11:31 14:50 Troponin I 0.01 0.02 0.03 Diagnostic Imaging: ECHO 02/24/19: EF 55%, trivial MR, TR. Leximyoview today: report not in, images reviewed, small fixed defect w/ additional reversable hypoperfusion in the mid/apical anterior wall. EKG Data: Monitor: NSR, LBBB, HR in 50's. Assessment/Plan 48 yo female with a 6 month history of palpitations, weekly and until yesterday selflimited. Now presents with sustained SVT, LBBB. SVT: Responsive to adenocard. I feel would benefit from EPS and ablation, discussed with the patient ( outpatient) Avoid alcohol, caffeine, get effective sleep. Possible CHELI based on body habitus. Recommend 12.5 mg Toprol and KCl 20 meq/day. Low resting HR makes stronger antiarrhythmics problematic. Abnormal stress: Differential of true CAD, attenuation artifact and artifact from LBBB. No heart cath planned now, no anginal symptoms. No family hx CAD, normal echo. Follow up: Dr Morris 1-5 weeks.
[2019-02-25] MEDS ORDERED: Metoprolol Tartrate TAB* 25 MG PO ONE (13:24)
[2019-02-25 15:14] VITALS: BP 130/64
--- NOTE | 2019-02-26 01:17 | DS ---
CC: Dr. Manjula Villa* DATE OF ADMISSION: 02/24/19 DATE OF DISCHARGE: 02/25/19 PROVIDER: Marcio Pickett NP. ATTENDING PHYSICIAN: Dr. Adams* (dictated by Marcio Pickett NP). PRIMARY CARE PROVIDER: Dr. Manjula Villa. PLASTER FOREMAN: Dr. Morris. DISCHARGE DIAGNOSES: 1. Supraventricular tachycardia. 2. Left bundle-branch block. SECONDARY DIAGNOSES: 1. Obesity. 2. Anxiety. 3. Nephrolithiasis, status post lithotripsy in 2014. 4. Fibroid, status post hysterectomy. 5. Status post cholecystectomy. 6. Depression. DISCHARGE MEDICATION: Escitalopram 10 mg p.o. at bedtime. NEW MEDICATIONS: 1. Potassium chloride 20 mEq p.o. daily. 2. Metoprolol tartrate 12.5 mg p.o. daily. HISTORY OF PRESENT ILLNESS AND HOSPITAL COURSE: Please see history and physical by Dr. Razia Tse for full admission details, but in summary, this is a 48-year-old woman who presented to the emergency department with acute onset of palpitations associated with a heaviness feeling across her chest. She reports that for the past 6 months she had approximately 5 episodes with a very fast heart rate. She notices that when she feels palpitations in her chest and checks her pulse, her heart rate is going very quickly. She reported the morning prior to coming to the emergency department, she was in the car with her daughter who just got her learner's permit and was driving herself to school when the patient again felt reoccurrence of palpitations with a heavy feeling in her chest. She went home, she lied down, practiced deep breathing, but the palpitations did not resolve, so she came to the emergency department for further evaluation. In the emergency department, she was noted to have an SVT with a rate of 168, in which she was given adenosine 6 mg IV push x1 and metoprolol 5 mg IV x1 and converted to a sinus rhythm. On the repeat EKG, the patient was noted to have a new left bundle-branch block. Dr. Morris from Cardiology recommended the patient to have a further workup of structural coronary artery disease. She was admitted to the hospitalist service on to the telemetry unit. She remained in a sinus rhythm. She underwent a cardiac nuclear exercise stress test, which was abnormal showing low to intermediate risk. The nuclear impression read "slight relative decrease in radiotracer uptake of the anterior myocardium closer to the apex than the base. Although this appearance reduces on attenuation correction images relative to non- attenuation correct, it does persist." Dr. Kiser, dental services director, did read the nuclear stress test herself, which she states showed a small fixed defect with additional reversible hypoperfusion in the mid/apical anterior wall. She spoke with Dr. Morris, dental services director, who will be following the patient as an outpatient and the agreement was to discharge the patient home on metoprolol tartrate 12.5 mg p.o. daily and potassium chloride 20 mEq p.o. daily. Most likely, the patient would benefit from an EPS and ablation. This was discussed with the patient and this can be done as an outpatient. She was recommended to avoid alcohol, caffeine, and get effective sleep. She has also been referred for a sleep study for possible CHELI based on body habitus. No recommendation for a heart catheterization currently. The patient has no anginal symptoms, no family history of coronary artery disease, and was found to have a normal echocardiogram. She is to follow up with Dr. Morris in 1 to 5 weeks. The patient was noted to have a total creatine kinase elevated on admission of 445. She did just start [employer]. Most likely, this is secondary to exercise. Her TSH was noted to be normal at 2.67, slightly elevated BNP of 180. Her troponins were trended, which were all negative. No source of infectious disease suspected. REVIEW OF SYSTEMS: A 14-point review of systems was performed. All the pertinent positives and negatives are mentioned in the history of present illness, otherwise are negative. PHYSICAL EXAMINATION: Vital Signs: Temperature 97.8, heart rate 62, respirations 18, pulse oximetry 100% on room air, blood pressure 121/65. General Appearance: A 48-year-old overweight female, alert and oriented x3, in no acute distress, very pleasant. HEENT: Head is normocephalic, atraumatic. Pupils are equal and reactive to light. Oropharynx is clear. Neck is supple. No JVD noted. Cardiac: S1 and S2. Regular rate and rhythm. No murmur, rubs, or gallop appreciated. Lungs: Clear to auscultation bilaterally. Good aeration throughout. Abdomen: Soft, nontender, nondistended. Normal bowel sounds throughout. Obese. Extremities: Moves all extremities. Strength is 5/ 5 throughout. No clubbing, cyanosis, or edema. Neuro: Alert and oriented x3. No focal deficits noted. DISCHARGE PLAN: 1. Follow up with primary care provider, Dr. Manjula Villa, in 4 to 7 days. 2. Follow up with Dr. Morris within 1 to 5 weeks. 3. It is okay to return to work. Light activity okay. 4. Avoid alcohol, caffeine, and get effective sleep. 5. Referral has been made to Dr. Cooney's office for a sleep study. 6. The patient is stable for discharge to home. TIME SPENT: Approximately 60 minutes was spent on this discharge. MARCIO PICKETT NP [id number]/[facility] #: [id number] RICKY
== END 2019-02-25 15:30 | disposition home or self-care (01) ==
LOC: ED 08:20 → MEDTELE 11:48
PROVIDERS: ADMIT Internal Medicine; ATTEND Student in an Organized Health Care Education/Training Program
DX: I47.1 Supraventricular tachycardia (principal); I44.7 Left bundle-branch block, unspecified; E66.9 Obesity, unspecified; F41.9 Anxiety disorder, unspecified; R07.89 Other chest pain; R00.2 Palpitations; Z87.442 Personal history of urinary calculi; Z87.42 Personal history of other diseases of the female genital tract; Z90.710 Acquired absence of both cervix and uterus; Z90.49 Acquired absence of other specified parts of digestive tract; F32.9 Major depressive disorder, single episode, unspecified
CPT/HCPCS: 36415; 71045; 78452; 80048; 80053; 81003; 82550; 82553; 83605; 83735; 83880; 84443; 84484; 84702; 85025; 85610; 85730; 93005; 93017; 93306; 96365; 96372; 96375; 99284; A9270-GY; A9502; G0378; J0153; J0280; J1650; J2785; J3475; J3490